=== PATIENT | female | born 1975 | race Two or more races ===

== ENCOUNTER 2022-05-13 06:43 | Inpatient (IN) | payer OTHER ==
[~2022-05-13] VITALS: Ht 162.6 cm; Wt 65.8 kg
[2022-05-14] MEDS ORDERED: PERCOCET 5-3251 EACH PO (08:34)
[2022-05-14] MEDS ORDERED: IBU800 MG PO (08:34)
[2022-05-14] MEDS ORDERED: COLACE100 MG PO (08:34)
[2022-05-14] MEDS ORDERED: SIMETHICONE80 MG PO (08:34)
== END 2022-05-14 09:57 | disposition home or self-care (01) | DRG 743 ==
LOC: CIR.AMB 06:43 → SURH 08:00 → CIR.AMB 08:00 → EDSTATUS 08:00 → CIR.AMB 11:30 → O/R 15:01 → OB/GYN 15:01
PROVIDERS: ADMIT Student in an Organized Health Care Education/Training Program; ATTEND Student in an Organized Health Care Education/Training Program
PROC: 0UT74ZZ Resection of Bilateral Fallopian Tubes, Percutaneous Endoscopic Approach (ICD-10-PCS; 2022-05-13)
PROC: 0DNN4ZZ Release Sigmoid Colon, Percutaneous Endoscopic Approach (ICD-10-PCS; 2022-05-13)
PROC: 0DNW4ZZ Release Peritoneum, Percutaneous Endoscopic Approach (ICD-10-PCS; 2022-05-13)
PROC: 0TJB8ZZ Inspection of Bladder, Via Natural or Artificial Opening Endoscopic (ICD-10-PCS; 2022-05-13)
PROC: 0UT94ZZ Resection of Uterus, Percutaneous Endoscopic Approach (ICD-10-PCS; principal; 2022-05-13 11:30)
DX: D25.1 Intramural leiomyoma of uterus (principal); D25.2 Subserosal leiomyoma of uterus; N72 Inflammatory disease of cervix uteri; Z20.822 Contact with and (suspected) exposure to COVID-19